=== PATIENT | female | born 1995 | race Two or more races ===

== ENCOUNTER 2021-01-01 11:49 | Emergency (ER) | payer OTHER ==
[~2021-01-01] VITALS: Ht 167.6 cm; Wt 88.5 kg
[2021-01-01] MEDS ORDERED: LITHIUM CARBON300 MG PO (12:07)
[2021-01-01] MEDS ORDERED: LEXAPRO20 MG PO (12:07)
[2021-01-01] MEDS ORDERED: ZITHROMAX200 MG PO (15:39)
== END 2021-01-01 15:59 | disposition home or self-care (01) ==
LOC: ER 11:49
DX: U07.1 COVID-19 (principal); J11.1 Influenza due to unidentified influenza virus with other respiratory manifestations

== ENCOUNTER 2021-10-27 16:45 | Emergency (ER) | payer OTHER ==
[~2021-10-27] VITALS: Ht 165.1 cm; Wt 90.3 kg
[~2021-10-27 16:45] MED LIST: LEXAPRO20 MG PO; LITHIUM CARBON300 MG PO; ZITHROMAX200 MG PO
== END 2021-10-27 20:29 | disposition home or self-care (01) ==
LOC: ER 16:45
DX: R07.89 Other chest pain (principal); F41.9 Anxiety disorder, unspecified; Z91.013 Allergy to seafood; Z20.822 Contact with and (suspected) exposure to COVID-19

== ENCOUNTER 2022-05-13 12:16 | Emergency (ER) | payer OTHER ==
[~2022-05-13] VITALS: Ht 167.6 cm; Wt 86.2 kg
[2022-05-13] MEDS ORDERED: ZITHROMAX TRI-500 MG PO (14:47)
[2022-05-13] MEDS ORDERED: TUSSIN DM SYRU118 ML PO (14:47)
[2022-05-13] MEDS ORDERED: MOMETASONE FURO15 G2 TOP (14:49)
== END 2022-05-13 14:51 | disposition home or self-care (01) ==
LOC: ER 12:16
DX: B34.9 Viral infection, unspecified (principal); Z91.013 Allergy to seafood

== ENCOUNTER 2023-05-10 08:56 | Emergency (ER) | payer OTHER ==
[~2023-05-10] VITALS: Ht 167.6 cm; Wt 83.9 kg
[~2023-05-10 08:56] MED LIST changes: +MOMETASONE FURO15 G2 TOP; +TUSSIN DM SYRU118 ML PO; +ZITHROMAX TRI-500 MG PO
[2023-05-10] MEDS ORDERED: LEXAPRO5 MG (09:14)
[2023-05-10] MEDS ORDERED: AMOX-CLAV 875-1 EACH PO (09:22)
== END 2023-05-10 09:51 | disposition home or self-care (01) ==
LOC: ER 08:56
DX: H66.90 Otitis media, unspecified, unspecified ear (principal); Z88.8 Allergy status to other drugs, medicaments and biological substances

== ENCOUNTER 2024-01-26 19:55 | Emergency (ER) | payer OTHER ==
[~2024-01-26] VITALS: Ht 167.6 cm; Wt 84.8 kg
[~2024-01-26 19:55] MED LIST changes: +AMOX-CLAV 875-1 EACH PO; +LEXAPRO5 MG
[2024-01-26] MEDS ORDERED: TETANUS & DIPHTHERIA TOX,ADULT 0.5 ML VIAL IM ONE (20:45)
[2024-01-26] MEDS ORDERED: CEFTRIAXONE SODIUM 2,000 MG VIAL IM ONE (20:45)
[2024-01-26] MEDS ORDERED: KETOROLAC TROMETHAMINE 60 MG VIAL IM ONE ×2 (20:45→21:06)
[2024-01-26] MEDS ORDERED: TETANUS DIPHTHERIA TOX. ADSOR 5 ML VIAL IM ONE (21:06)
[2024-01-26] MEDS ORDERED: CEFTRIAXONE SODIUM 1,000 MG VIAL ONE (21:07)
[2024-01-26] MEDS ORDERED: PEPCID AC20 MG PO (21:56)
[2024-01-26] MEDS ORDERED: CEPHALEXIN750 MG PO (21:56)
== END 2024-01-26 22:29 | disposition home or self-care (01) ==
LOC: ER 19:56
DX: S41.152A Open bite of left upper arm, initial encounter (principal); W54.0XXA Bitten by dog, initial encounter; Y93.89 Activity, other specified; Y92.89 Other specified places as the place of occurrence of the external cause; Y99.8 Other external cause status; Z88.8 Allergy status to other drugs, medicaments and biological substances

== ENCOUNTER → 2024-01-30 | Emergency (ER) | payer OTHER ==
[~2024-01-30] MED LIST changes: +CEPHALEXIN750 MG PO; +PEPCID AC20 MG PO
== END | disposition left against medical advice (07) ==
LOC: ER 17:34
DX: Z53.21 Procedure and treatment not carried out due to patient leaving prior to being seen by health care provider (principal)

== ENCOUNTER 2024-09-24 09:58 | Emergency (ER) | payer OTHER ==
[~2024-09-24] VITALS: Ht 167.6 cm; Wt 88.9 kg
[2024-09-24] MEDS ORDERED: LEVALBUTEROL HCL 1.25 MG/3 ML SOLUTION IH STA (10:50)
[2024-09-24] MEDS ORDERED: BUDESONIDE 0.5 MG/2 ML AMPUL.NEB IH STA (10:51)
[2024-09-24] MEDS ORDERED: METHYLPREDNISOLONE SOD SUCC 125 MG VIAL IV STA (10:52)
[2024-09-24] MEDS ORDERED: METHYLPREDNISOLONE SOD SUCC 125 MG VIAL ONE (11:18)
[2024-09-24] MEDS ORDERED: BUDESONIDE 0.5 MG/2 ML AMPUL.NEB IH ONE (11:29)
[2024-09-24] MEDS ORDERED: LEVALBUTEROL HCL 1.25 MG/3 ML SOLUTION IH ONE (11:29)
[2024-09-24 12:17] LABS: INFLUENZA A AG NEGATIVE (NEGATIVE); INFLUENZA B AG NEGATIVE (NEGATIVE)
== END 2024-09-24 13:34 | disposition home or self-care (01) ==
LOC: ER 09:58
PROVIDERS: General Practice
DX: J45.909 Unspecified asthma, uncomplicated (principal); R05.9 Cough, unspecified; Z88.0 Allergy status to penicillin

== ENCOUNTER 2024-09-26 12:54 | Emergency (ER) | payer OTHER ==
[~2024-09-26] VITALS: Ht 167.6 cm; Wt 88.9 kg
[2024-09-26] MEDS ORDERED: levoFLOXacin IN DEXTROSE 5 % 500MG/100ML PIGGYBAG IV STA (13:38)
[2024-09-26] MEDS ORDERED: HYDROCODONE/CHLORPHEN P-STIREX 5 ML ML PO STA (13:39)
[2024-09-26] MEDS ORDERED: levoFLOXacin IN DEXTROSE 5 % 500MG/100ML PIGGYBAG IV ONE (14:07)
[2024-09-26 15:02] LABS: HEMATOCRIT 37.9 % (36.0-45.00); HEMOGLOBIN 12.7 g/dL (12.0-15.00); MEAN CELL VOLUME 80.9 fL (80.00-100.00); MEAN CORPUSCULAR HEMOGLOBIN 27.1 pg (27.00-32.0); MEAN CORPUSCULAR HGB CONC 33.5 g/dl (32.0-36.0); PLATELET COUNT 269 K/uL (150-450); RED BLOOD COUNT 4.69 M/uL (4.00-6.00); RED CELL DISTRIBUTION WIDTH 15.3 % (11.5-14.5)
[2024-09-26 15:41] LABS: COVID-19 AG NEGATIVE (NEGATIVE)
== END 2024-09-26 16:18 | disposition home or self-care (01) ==
LOC: ER 12:54
PROVIDERS: General Practice
DX: J40 Bronchitis, not specified as acute or chronic (principal); Z88.8 Allergy status to other drugs, medicaments and biological substances; Z20.822 Contact with and (suspected) exposure to COVID-19